=== PATIENT | male | born 1960 | race American Indian/Alaskan Native ===

== ENCOUNTER 2016-11-04 14:00 | Emergency (ER) | payer MEDICAID ==
[~2016-11-04] VITALS: Ht 180.3 cm; Wt 70.3 kg
[2016-11-04 14:01] VITALS: BP 111/74
== END 2016-11-04 14:54 | disposition home or self-care (01) ==
LOC: ED 14:48
DX: D48.5 Neoplasm of uncertain behavior of skin (principal)
CPT/HCPCS: 99281